=== PATIENT | female | born 1985 | race Caucasian/White ===

== ENCOUNTER 2022-04-29 11:06 | Emergency (ER) | payer OTHER, SELFPAY ==
[2022-04-29] VITALS (23 sets, daily range): BP systolic 103–141; BP diastolic 52–69; PULSE 69–99; RESP 16–23; TEMP 35.9–36.5; O2SAT 100; BMI 21.4
[2022-04-29 11:46] LABS: Basophils Absolute Auto 100 /uL (0-100); Basophils Percent Auto 1.1 % (0-2); Eosinophils Absolute Auto 0 /uL (0-450); Eosinophils Percent Auto 0.6 % (2-4); Hematocrit 23.1 % (36-46); Hemoglobin 7.1 g/dL (12.0-16.0); Lymphocytes Absolute Auto 1500 /uL (1100-4500); Mean Corpuscular HGB Conc 30.6 % (30-36); Mean Corpuscular Hemoglobin 19.8 PG (26-34); Mean Corpuscular Volume 64.8 fL (80-100); Monocytes Absolute Auto 500 /uL (0-900); Monocytes Percent Auto 7.1 % (3-14); Neutrophils Absolute Auto 4800 /uL (1500-7000); Neutrophils Percent Auto 69.2 % (50-75); Platelet Count 345 X10^3/uL (150-400); Red Blood Cell Count 3.56 X10^6/uL (4.0-5.2); Red Cell Distribution Width 17.5 % (11.6-14.8); White Blood Cell Count 6.9 X10^3/uL (4.5-11.0)
--- NOTE | 2022-04-29 11:48 | ED.GENADULT ---
HPI - General Adult General Chief complaint: Weakness Stated complaint: anemia, heavy period, weakness Time Seen by Provider: 04/29/22 11:42 Source: patient Mode of arrival: Ambulatory History of Present Illness HPI narrative: Patient is a 36-year-old female. Has had a gastric bypass in the past which has caused her to have issues with absorption of iron. She has had iron infusions in the past. She also has had very heavy menstrual cycles. She is not on any control. She states that a couple days ago she started to have her normal menstrual cycle bleeding. She went to see her primary doctor the end of last week because of the fatigue that she was having. Denies any fevers. No abdominal pain. No vomiting. She was told by her primary doctor that she should come to the emergency department for evaluation. According to reports her hemoglobin and hematocrit on Friday were 7.6/27.1. Review of Systems Review of Systems ROS Unobtainable: All systems reviewed & are unremarkable except as noted in HPI and below Constitutional Constitutional: Reports fatigue, Denies fever(s) and Reports lethargy Cardiovascular Cardiovascular: Denies chest pain and Reports dyspnea on exertion Respiratory Respiratory: Reports dyspnea on exertion Gastrointestinal Gastrointestinal: Denies abdominal pain, Denies change in bowel habits, Denies nausea and Denies vomiting Genitourinary Genitourinary: Reports as per HPI, Denies hematuria and Denies dysuria Integumentary/Breasts Comments: Easy bruising Neurologic Neurologic: Reports system reviewed and no additional complaints, except as documented Endocrine Endocrine: Reports fatigue Hematologic/Lymphatic On Anticoagulants: No Patient History Medical History Iron deficiency anemia Surgical History History of gastric bypass Social History Smoking Status: Never smoker Smoking Status: Never smoker Substance Use Type: does not use Exam Initial Vital Signs Initial Vital Signs: Vital Signs Temperature 96.6 F L 04/29/22 11:10 Pulse Rate 70 04/29/22 11:10 Respiratory Rate 18 04/29/22 11:10 Blood Pressure 141/66 H 04/29/22 11:10 Pulse Oximetry 100 04/29/22 11:10 Oxygen Delivery Method 04/29/22 11:10 Const General: cooperative and comfortable HENMT Head: normal to inspection and normocephalic Resp Effort & Inspection: normal respiratory effort Auscultation: clear to auscultation bilaterally Cardio Rate: regular rate Rhythm: regular rhythm GI Inspection: normal to inspection Palpation: soft and No tender Skin General: no rashes or lesions noted Neuro General: patient alert, patient awake, patient oriented x3 and moves all extremities Cognition: normal cognition Speech: speech normal Extrem General: normal to inspection and capillary refill normal Psych Appearance: grossly normal and well kempt Course Orders Ordered: ED Orders 04/29/22 11:16 EKG-12 Lead Stat 04/29/22 11:33 Complete Blood Count AUTO DIFF Stat Comprehensive Metabolic Panel Stat Packed Cells Stat Partial Thromboplastin Time Stat Prothrombin Time INR Stat Type and Screen Stat 04/29/22 16:49 Hemoglobin and Hematocrit Stat Vital Signs Vital signs: Vital Signs - 8 hr 04/29/22 11:10 04/29/22 11:19 04/29/22 11:19 Temperature 96.6 F L Pulse Rate 70 71 Respiratory Rate 18 Blood Pressure 141/66 H 141/66 H Pulse Oximetry 100 100 Oxygen Delivery Method Room Air 04/29/22 11:30 04/29/22 12:00 04/29/22 12:30 Temperature Pulse Rate 83 81 75 Respiratory Rate 20 23 Blood Pressure Pulse Oximetry 100 100 100 Oxygen Delivery Method 04/29/22 12:31 04/29/22 12:31 04/29/22 13:00 Temperature Pulse Rate 71 70 Respiratory Rate 19 17 Blood Pressure 107/56 L Pulse Oximetry 100 100 Oxygen Delivery Method 04/29/22 13:08 04/29/22 13:24 04/29/22 13:08 Temperature 97.7 F 97.5 F L Pulse Rate 77 75 76 Respiratory Rate 20 18 17 Blood Pressure 108/56 L 112/62 Pulse Oximetry 100 Oxygen Delivery Method 04/29/22 13:08 04/29/22 13:15 04/29/22 13:15 Temperature 97.7 F Pulse Rate 78 Respiratory Rate 20 Blood Pressure 108/56 L 110/57 L Pulse Oximetry 100 Oxygen Delivery Method 04/29/22 13:24 04/29/22 13:24 04/29/22 13:30 Temperature Pulse Rate 72 Respiratory Rate 19 Blood Pressure 112/62 111/60 Pulse Oximetry 100 Oxygen Delivery Method 04/29/22 13:30 04/29/22 14:00 04/29/22 14:00 Temperature Pulse Rate 73 72 Respiratory Rate 16 19 Blood Pressure 105/56 L Pulse Oximetry 100 100 Oxygen Delivery Method 04/29/22 14:40 04/29/22 14:53 04/29/22 14:30 Temperature 97.1 F L Pulse Rate 79 99 H Respiratory Rate 16 16 Blood Pressure 109/65 109/65 112/69 Pulse Oximetry Oxygen Delivery Method 04/29/22 14:30 04/29/22 14:40 04/29/22 14:40 Temperature Pulse Rate 88 78 Respiratory Rate 21 18 Blood Pressure 109/65 Pulse Oximetry 100 100 Oxygen Delivery Method 04/29/22 15:00 04/29/22 15:00 04/29/22 15:15 Temperature 97.3 F L Pulse Rate 89 88 Respiratory Rate 20 16 Blood Pressure 105/52 L 105/58 L Pulse Oximetry 100 Oxygen Delivery Method 04/29/22 15:24 04/29/22 15:24 04/29/22 15:30 Temperature Pulse Rate 74 Respiratory Rate 17 Blood Pressure 105/58 L 103/60 Pulse Oximetry 100 Oxygen Delivery Method 04/29/22 15:30 04/29/22 16:00 04/29/22 16:00 Temperature 97.2 F L Pulse Rate 74 72 Respiratory Rate 17 16 Blood Pressure 117/58 L Pulse Oximetry 100 100 Oxygen Delivery Method 04/29/22 16:39 04/29/22 16:30 04/29/22 16:30 Temperature 97.1 F L Pulse Rate 72 69 Respiratory Rate 18 18 Blood Pressure 107/64 107/64 Pulse Oximetry 100 Oxygen Delivery Method 04/29/22 17:00 04/29/22 17:00 Temperature Pulse Rate 79 Respiratory Rate 18 Blood Pressure 106/65 Pulse Oximetry 100 Oxygen Delivery Method Medical Decision Making Lab Data Lab results reviewed: Yes I reviewed the patient's lab results. Result diagrams: 04/29/22 16:49 04/29/22 11:33 Labs: Lab Results 04/29/22 04/29/22 04/29/22 Range/Units 11:33 11:33 11:33 WBC 6.9 (4.5-11.0) X10^3/uL RBC 3.56 L (4.0-5.2) X10^6/uL Hgb 7.1 L (12.0-16.0) g/dL Hct 23.1 L (36-46) % MCV 64.8 L (80-100) fL MCH 19.8 L (26-34) PG MCHC 30.6 (30-36) % RDW 17.5 H (11.6-14.8) % Plt Count 345 (150-400) X10^3/uL Neut % (Auto) 69.2 (50-75) % Lymph % (Auto) 22.0 L (25-40) % [place] % (Auto) 7.1 (3-14) % Eos % (Auto) 0.6 L (2-4) % Baso % (Auto) 1.1 (0-2) % Neut # (Auto) 4800 (4517-3018) /uL Lymph # (Auto) 1500 (6765-0780) /uL [place] # (Auto) 500 (0-900) /uL Eos # (Auto) 0 (0-450) /uL Baso # (Auto) 100 (0-100) /uL RBC Morphology See below Hypochromasia 2+ H Anisocytosis 1+ H Microcytosis 2+ H PT 11.6 (10.1-12.7) SECONDS INR 1.0 (0.9-1.3) APTT 32 (26-36) SECONDS Sodium 140 (137-145) mmol/L Potassium 3.7 (3.4-5.1) mmol/L Chloride 108 H (98-107) mmol/L Carbon Dioxide 22 (22-32) mmol/L BUN 11 (7-17) mg/dL Creatinine 0.62 (0.52-1.04) mg/dL Estimated GFR > 60 (>60) mL/min BUN/Creatinine Ratio 17.7 (6-22) Glucose 90 (70-100) mg/dL Calcium 8.6 (8.4-10.2) mg/dL Total Bilirubin 0.6 (0.2-1.3) mg/dL AST 24 (14-36) IU/L ALT 14 (<35) IU/L Alkaline Phosphatase 73 (38-126) U/L Total Protein 7.6 (6.3-8.2) g/dL Albumin 4.2 (3.5-5.0) g/dL Globulin 3.4 (1.7-4.1) g/dL Albumin/Globulin Ratio 1.2 (1.0-2.8) Blood Type Antibody Screen Crossmatch 04/29/22 04/29/22 Range/Units 11:33 16:49 WBC (4.5-11.0) X10^3/uL RBC (4.0-5.2) X10^6/uL Hgb 8.8 L (12.0-16.0) g/dL Hct 28.2 L (36-46) % MCV (80-100) fL MCH (26-34) PG MCHC (30-36) % RDW (11.6-14.8) % Plt Count (150-400) X10^3/uL Neut % (Auto) (50-75) % Lymph % (Auto) (25-40) % [place] % (Auto) (3-14) % Eos % (Auto) (2-4) % Baso % (Auto) (0-2) % Neut # (Auto) (6615-9880) /uL Lymph # (Auto) (2906-9696) /uL [place] # (Auto) (0-900) /uL Eos # (Auto) (0-450) /uL Baso # (Auto) (0-100) /uL RBC Morphology Hypochromasia Anisocytosis Microcytosis PT (10.1-12.7) SECONDS INR (0.9-1.3) APTT (26-36) SECONDS Sodium (137-145) mmol/L Potassium (3.4-5.1) mmol/L Chloride (98-107) mmol/L Carbon Dioxide (22-32) mmol/L BUN (7-17) mg/dL Creatinine (0.52-1.04) mg/dL Estimated GFR (>60) mL/min BUN/Creatinine Ratio (6-22) Glucose (70-100) mg/dL Calcium (8.4-10.2) mg/dL Total Bilirubin (0.2-1.3) mg/dL AST (14-36) IU/L ALT (<35) IU/L Alkaline Phosphatase (38-126) U/L Total Protein (6.3-8.2) g/dL Albumin (3.5-5.0) g/dL Globulin (1.7-4.1) g/dL Albumin/Globulin Ratio (1.0-2.8) Blood Type A Positive Antibody Screen Negative Crossmatch See Detail MDM Narrative Medical decision making narrative: Patient was anemic upon arrival but not tachycardic and not hypotensive. She states she does feel very fatigued does get short of breath on exertion. Informed her that those symptoms could potentially be from her blood counts. We did discuss blood transfusion. Discussed risks and benefits of this. We discussed alternatives to include not having a blood transfusion and following up with her primary doctor for an iron infusion. After this discussion the patient stated that she would like to try the blood transfusion to see if this improves things. She was given 2 units of packed red blood cells. She tolerated this without issue. We will hold on an iron transfusion as this is not needed in the ER. Informed her that she should talk with her primary doctor about this and also about potentially starting on control for hormone regulations as this may decrease the amount of vaginal bleeding that she is having. She was given return precautions and follow-up instructions. She expressed understanding and agreement. Discharge Plan Departure Patient Disposition: Home Clinical Impression: Anemia Instructions: DI for Blood Transfusion Activity Restrictions/Additional Instructions: I do recommend that you call your primary doctor to discuss follow-up and to discuss an iron infusion and potentially the use of control. Return to the emergency department for any new or worsening symptoms. Referrals: Whitney Nina MD [Primary Care Provider] - Visit Report Forms: Patient Portal/API
[2022-04-29 11:49] LABS: Add Manual Diff / Slide Review SLIDE REVIEW
[2022-04-29 11:55] LABS: Prothrombin Time 11.6 SECONDS (10.1-12.7)
[2022-04-29 11:58] LABS: PTT Partial Thromboplastin Tim 32 SECONDS (26-36)
[2022-04-29 12:01] LABS: Alanine Aminotransferase 14 IU/L (<35); Albumin 4.2 g/dL (3.5-5.0); Albumin Globulin Ratio 1.2 (1.0-2.8); Alkaline Phosphatase 73 U/L (38-126); Aspartate Aminotransferase 24 IU/L (14-36); BUN Creatinine Ratio 17.7 (6-22); Bilirubin Total 0.6 mg/dL (0.2-1.3); Blood Urea Nitrogen 11 mg/dL (7-17); Calcium 8.6 mg/dL (8.4-10.2); Carbon Dioxide 22 mmol/L (22-32); Chloride 108 mmol/L (98-107); Estimated Glomerular Filt Rate > 60 mL/min (>60); Globulin 3.4 g/dL (1.7-4.1); Glucose 90 mg/dL (70-100); HEMOLYSIS < 15 (0-50); Potassium 3.7 mmol/L (3.4-5.1); Sodium 140 mmol/L (137-145); Total Protein 7.6 g/dL (6.3-8.2)
[2022-04-29 12:04] LABS: Anisocytosis 1+; Hypochromasia 2+; Microcytosis 2+
[2022-04-29 17:05] LABS: Hematocrit 28.2 % (36-46); Hemoglobin 8.8 g/dL (12.0-16.0)
== END 2022-04-29 17:20 | disposition home or self-care (01) ==
PROVIDERS: Emergency Provider Emergency Medicine; PCP Family Medicine
DX: D64.9 Anemia, unspecified (principal); R53.83 Other fatigue; R06.02 Shortness of breath; Z98.84 Bariatric surgery status
CPT/HCPCS: 36415; 36430; 80053; 85014; 85018; 85025; 85610; 85730; 86850; 86900; 86901; 99284; P9016

== ENCOUNTER 2022-06-20 09:32 | Emergency (ER) | payer OTHER, SELFPAY ==
[2022-06-20 09:41] VITALS: BP 127/70; PULSE 81; RESP 15; TEMP 36.5; O2SAT 100; BMI 24.5
[2022-06-20 10:17] LABS: UR Morphine/Opiate cutoff 300 Negative (Negative); Ur Creatinine Normal (Normal); Ur Specific Gravity Normal (Normal); Urine Amphetamines Negative (Negative); Urine Barbiturates Negative (Negative); Urine Benzodiazepines Negative (Negative); Urine Cocaine Negative (Negative); Urine MDMA Negative (Negative); Urine Methadone Negative (Negative); Urine Methamphetamines Negative (Negative); Urine Oxycodone Negative (Negative); Urine Phencyclidine Negative (Negative); Urine Tetrahydrocannabinol Negative (Negative); Urine Tricyclic Antidepressant Negative (Negative); Urine pH Normal (Normal)
[2022-06-20 10:18] LABS: COVID19 -Nasal RAPID Negative (Negative)
[2022-06-20 10:33] LABS: Basophils Absolute Auto 100 /uL (0-100); Basophils Percent Auto 0.9 % (0-2); Eosinophils Absolute Auto 0 /uL (0-450); Eosinophils Percent Auto 0.3 % (2-4); Hematocrit 32.4 % (36-46); Hemoglobin 10.4 g/dL (12.0-16.0); Lymphocytes Absolute Auto 1300 /uL (1100-4500); Lymphocytes Percent Auto 19.5 % (25-40); Mean Corpuscular HGB Conc 32.1 % (30-36); Mean Corpuscular Hemoglobin 24.5 PG (26-34); Mean Corpuscular Volume 76.3 fL (80-100); Monocytes Absolute Auto 300 /uL (0-900); Monocytes Percent Auto 4.8 % (3-14); Neutrophils Absolute Auto 5000 /uL (1500-7000); Neutrophils Percent Auto 74.5 % (50-75); Platelet Count 318 X10^3/uL (150-400); Red Blood Cell Count 4.24 X10^6/uL (4.0-5.2); Red Cell Distribution Width 23.9 % (11.6-14.8); White Blood Cell Count 6.7 X10^3/uL (4.5-11.0)
[2022-06-20 10:34] LABS: Add Manual Diff / Slide Review SLIDE REVIEW
[2022-06-20 10:41] LABS: Acetaminophen < 10 ug/mL (10-30); Alanine Aminotransferase 18 IU/L (<35); Albumin 4.4 g/dL (3.5-5.0); Albumin Globulin Ratio 1.2 (1.0-2.8); Alkaline Phosphatase 85 U/L (38-126); Aspartate Aminotransferase 26 IU/L (14-36); BUN Creatinine Ratio 18.3 (6-22); Bilirubin Total 0.5 mg/dL (0.2-1.3); Blood Urea Nitrogen 11 mg/dL (7-17); Calcium 9.1 mg/dL (8.4-10.2); Carbon Dioxide 25 mmol/L (22-32); Chloride 106 mmol/L (98-107); Estimated Glomerular Filt Rate > 60 mL/min (>60); Ethanol (ETOH) < 10 mg/dL; Globulin 3.6 g/dL (1.7-4.1); Glucose 101 mg/dL (70-100); HEMOLYSIS < 15 (0-50); Potassium 4.4 mmol/L (3.4-5.1); Salicylate < 1.0 mg/dL (<20); Sodium 139 mmol/L (137-145)
[2022-06-20 11:06] LABS: Free T4, Direct Thyroxine 0.94 ng/dL (0.78-2.19)
[2022-06-20 11:14] LABS: Anisocytosis 2+
--- NOTE | 2022-06-20 12:45 | CM.SWNOTE ---
Pt is 36 year old female with no significant medical history that presents to ED with suicidal ideation with a plan. Pt has [employer] insurance and her PCP is Dr. Whitney Nina. Plan: pt will discharge home with safety plan. Pt will follow up with PCP regarding possibility of starting psych meds. Gloria Lee TRACK MECHANIC TRACK MECHANIC - Block Mechanic Assessment TRACK MECHANIC - Block Mechanic Assessment Start: 06/20/22 12:21 Freq: Status: Active Protocol: Document 06/20/22 12:21 TM (Rec: 06/20/22 12:35 TM [id number]) TRACK MECHANIC/Block Mechanic Assessment Time Spent with Patient Start date 06/20/22 Visit Start Time 11:45 End date 06/20/22 Visit End Time 12:21 Mental Health Screening Include Onset, Duration, Intensity Presenting Problem Pt presents with suicidal ideation. [place] for [place] hour before driving herself to ED for evaluation. Precipitating Event(s) Pt reports that an argument with her triggered her SI. Pt reports that she has been feeling off for a few days and has had thoughts that the world and her family would be better off without her. Current Behavioral Health Provider(s) Joellen Graham PsyD, MEd - Include Facility, Provider, Ph. # [facility]. Hx Mental Health and Chemical Pt denies formal psychiatric Dependency diagnoses. Pt denies substance use. Family Hx of Behavioral Abuse Pt reports that her mother suffered depression and has a hx of SI and suicide attempts. Psychiatric Hospitalizations (date(s)/ N/A location) Psychosocial information & Support Pt reports that her castings drafter and Systems therapist are good supports. School/Work Pt works as an accounts adjustable clerk. Legal Concerns Legal Matters - Outstanding Issues None. Mental Status Orientation (Person/Place/Time) Pt is oriented to person, place, time. Stated Mood Feeling off for a few days. Feeling like the world and my family would be better off if I didn't exist. Affect (Congruent with Mood?) Normal - congruent with mood. Thought Content - Specify/Describe Intact. No AH or VH noted. Obsessions, Delusions, Hallucinations Thought Processes (Qqfawxf-Eipmslos-Vbtc Logical, organized. Ihalabnj-Xycmnpic-Hrqltwhhhp- Hnngpwdzpwaetm-Lsgjgvy-Nmdbggppxvrd- Thought Blocking) Speech (Vaatdb-Spod-Qnwbqyl-Rapid-Soft- normal. Loud-Pressured) Motor (Ccokld-Cfzhuwypk-Daio-Other) normal. Insight (Fbjh-Ttax-Gxtp/Limited) Fair. Judgement (Klsg-Orot-Wtra/Limited) Fair. Impulse Control (Adequate-Impaired) Not tested. Fair - per situation; pt was able [place] and drive herself to ED. Memory (Bkfxmrndc-Rwdcut-Gxiexd, Intact. Impaired-Intact) Concentration (Intact-Impaired) Intact. Attention (Intact-Impaired) Intact. Behavior (Appropriate-Inappropriate) Appropriate. Risk Assessment Suicidal Ideation (Plan) No Homicidal Ideation (Plan) No Comment Pt denies current SI and has no current plan. Intervention Intervention SW met pt at bedside to perform mental health assessment. Pt reports that she was feeling suicidal earlier but denies current feelings of SI and denies plan . Pt reports that she feels like she needs to make a change to get out of her current cycle. SW provides psychoeducation about hyperarousal and inability to reason in situations such as intense arguments with spouse. SW discussed possibility of pt starting psychiatric medication - such as SSRI. Pt reports that she has never been prescribed medication but may be open to trying. Pt reports that she does not feel like she needs inpatient psychiatric hospitalization at this time. Pt reports that she believes she can keep herself safe at home. ANTHONY completed safety plan with pt to identify triggers, early warning signs, and coping mechanisms. Plan RA Plan Pt will follow up with PCP to discuss possibility of starting SSRI or other psych med.
[2022-06-20 13:37] VITALS: BP 108/58; PULSE 88; O2SAT 100
--- NOTE | 2022-06-20 13:59 | ED_ITS ---
HPI - Psych <FINA Hudson - Last Filed: 06/20/22 14:06> General Chief Complaint: Psychiatric Symptoms Stated Complaint: suicidal ideation Time Seen by Provider: 06/20/22 12:52 Source: patient Mode of arrival: Ambulatory History of Present Illness HPI Narrative: This is a 36-year-old female presents to the emergency department with suicidal ideation and feeling severely depressed mood this morning while she is going through some stressful situations. She denies any attempts at harming herself, states that she has a primary care provider as well as a therapist and is willing to follow-up with them accordingly. She was scared about her feelings and so she came here for an evaluation and resources. She states that she is going through some difficult times at home, denies any homicidal ideation, d enies being in danger, denies any intoxication or substance abuse. She denies any ingestion, states that she did not feel like she wanted to live, she denies having a plan, she denies having any attempts at hurting herself or suicidal thoughts in the past. She states that she has a 1-year-old child and her primary care provider was going to place her on Wellbutrin during her but she found out that her baby had a cleft palate and was too nervous to ever start the medication. She has not ever been on antidepressants in the past. Related Data Home Medications Medication Instructions Recorded Confirmed multivitamin 1 tab PO DAILY 05/16/22 05/16/22 vitamin [id number] B1 1,000 ml IM QMONTH 05/16/22 mcg-100 mg/mL injection solution Previous Rx's Medication Instructions Recorded bupropion HCl 75 mg tablet 75 mg PO TID 30 days #90 tabs 06/20/22 hydroxyzine HCl 25 mg tablet 25 mg PO BID PRN anxiety #60 tabs 06/20/22 Allergies Allergy/AdvReac Type Severity Reaction Status Date / Time No Known Drug Allergies Allergy Verified 06/20/22 09:42 Review of Systems <FINA Hudson - Last Filed: 06/20/22 14:06> Review of Systems Narrative: Review of systems is negative for acute abnormalities unless otherwise noted in HPI Patient History <FINA Hudson - Last Filed: 06/20/22 14:06> Medical History Iron deficiency anemia Surgical History History of gastric bypass Social History Smoking Status: Never smoker Smoking Status: Never smoker alcohol intake frequency: holidays/special occasions only Substance Use Type: does not use Exam <FINA Hudson - Last Filed: 06/20/22 14:06> Narrative Exam Narrative: Reviewed vitals signs and nursing notes. General: cooperative, comfortable, in no acute distress, well groomed, pleasant and calm, interactive HEENT: symmetrical facial expressions, moist mucous membranes Cardiovascular: regular rate and rhythm, no peripheral edema, warm extremities Respiratory: normal effort, able to speak in complete sentences, without wheezing, stridor, MSK: moves all extremities, ambulatory without deficit Skin: brisk capillary refill, without pallor or erythema Neuro: normal speech and cognition, A&O x3, ambulatory, clear speech Psych: mental status is grossly normal, congruent mood, normal affect, pleasant and cooperative Initial Vital Signs Initial Vital Signs: Vital Signs Temperature 97.7 F 06/20/22 09:41 Pulse Rate 81 06/20/22 09:41 Respiratory Rate 15 06/20/22 09:41 Blood Pressure 127/70 06/20/22 09:41 Pulse Oximetry 100 06/20/22 09:41 Oxygen Delivery Method 06/20/22 09:41 <Evelina Nino DO - Last Filed: 06/24/22 08:03> Initial Vital Signs Initial Vital Signs: Vital Signs Temperature 97.7 F 06/20/22 09:41 Pulse Rate 81 06/20/22 09:41 Respiratory Rate 15 06/20/22 09:41 Blood Pressure 127/70 06/20/22 09:41 Pulse Oximetry 100 06/20/22 09:41 Oxygen Delivery Method 06/20/22 09:41 Course <FINA Hudson - Last Filed: 06/20/22 14:06> Orders Ordered: ED Orders 06/20/22 09:48 Consult to ULTRASONIC SEAMING MACHINE OPERATOR - Clamshell Engineer Stat 06/20/22 09:50 COVID19 -Nasal RAPID/Pre-Proc Stat 06/20/22 10:00 Urine Drug Screen, Rapid Stat 06/20/22 10:13 Acetaminophen Stat Complete Blood Count AUTO DIFF Stat Comprehensive Metabolic Panel Stat Ethanol (ETOH) Stat Free T4, Direct Thyroxine Stat Salicylate Stat Thyroid Stimulating Hormone Stat 06/20/22 11:17 Test Urine Stat Urinalysis and Microscopic Stat Reevaluation(s) Reevaluation #1: sail lay out worker met with the patient and agrees that she is not gravely disabled, she has adequate support and a safety plan, she has a primary care provider who she will follow-up with and a therapist as well. Patient is interested in medication for depression, I when spoke with her about this, opted to start Wellbutrin again at 75 mg t.i.d. per her previous prescription and then she will follow-up with her provider about this. Discussed as needed anxiety medication and gave her hydroxyzine in the emergency department and a prescription of this for symptom management through her therapy and difficult time. Vital Signs Vital signs: Vital Signs - 8 hr 06/20/22 09:41 06/20/22 13:37 Temperature 97.7 F Pulse Rate 81 88 Respiratory Rate 15 Blood Pressure 127/70 108/58 L Pulse Oximetry 100 100 Oxygen Delivery Method Room Air Room Air <Evelina Nino DO - Last Filed: 06/24/22 08:03> Orders Ordered: ED Orders 06/20/22 09:48 Consult to ULTRASONIC SEAMING MACHINE OPERATOR - Clamshell Engineer Stat 06/20/22 09:50 COVID19 -Nasal RAPID/Pre-Proc Stat 06/20/22 10:00 Urine Drug Screen, Rapid Stat 06/20/22 10:13 Acetaminophen Stat Complete Blood Count AUTO DIFF Stat Comprehensive Metabolic Panel Stat Ethanol (ETOH) Stat Free T4, Direct Thyroxine Stat Salicylate Stat Thyroid Stimulating Hormone Stat 06/20/22 11:17 Test Urine Stat Urinalysis and Microscopic Stat Vital Signs Vital signs: Vital Signs - 8 hr 06/20/22 09:41 06/20/22 13:37 Temperature 97.7 F Pulse Rate 81 88 Respiratory Rate 15 Blood Pressure 127/70 108/58 L Pulse Oximetry 100 100 Oxygen Delivery Method Room Air Room Air MDM - Psych <FINA Hudson - Last Filed: 06/20/22 14:06> Lab Data Result diagrams: 06/20/22 10:13 06/20/22 10:13 Labs: Lab Results 06/20/22 06/20/22 06/20/22 Range/Units 09:50 10:00 10:00 WBC (4.5-11.0) X10^3/uL RBC (4.0-5.2) X10^6/uL Hgb (12.0-16.0) g/dL Hct (36-46) % MCV (80-100) fL MCH (26-34) PG MCHC (30-36) % RDW (11.6-14.8) % Plt Count (150-400) X10^3/uL Neut % (Auto) (50-75) % Lymph % (Auto) (25-40) % [place] % (Auto) (3-14) % Eos % (Auto) (2-4) % Baso % (Auto) (0-2) % Neut # (Auto) (3030-8357) /uL Lymph # (Auto) (3482-2048) /uL [place] # (Auto) (0-900) /uL Eos # (Auto) (0-450) /uL Baso # (Auto) (0-100) /uL RBC Morphology Anisocytosis Sodium (137-145) mmol/L Potassium (3.4-5.1) mmol/L Chloride (98-107) mmol/L Carbon Dioxide (22-32) mmol/L BUN (7-17) mg/dL Creatinine (0.52-1.04) mg/dL Estimated GFR (>60) mL/min BUN/Creatinine Ratio (6-22) Glucose (70-100) mg/dL Calcium (8.4-10.2) mg/dL Total Bilirubin (0.2-1.3) mg/dL AST (14-36) IU/L ALT (<35) IU/L Alkaline Phosphatase (38-126) U/L Total Protein (6.3-8.2) g/dL Albumin (3.5-5.0) g/dL Globulin (1.7-4.1) g/dL Albumin/Globulin Ratio (1.0-2.8) TSH (0.47-4.68) uIU/mL Free T4 (0.78-2.19) ng/dL Urine Color Yellow Urine Appearance Clear Urine pH 7.0 (4.5-8.0) Ur Specific [place] 1.010 (1.000-1.035) Urine Protein Negative (Negative) Urine Glucose (UA) Negative (Negative) g/dL Urine Ketones Negative (NEGATIVE) Urine Occult Blood Trace-lysed (Negative) Urine Nitrate Negative (Negative) Urine Bilirubin Negative (NEGATIVE) Urine Urobilinogen 0.2 (0.2) E.U./dL Ur Leukocyte Esterase Negative (NEGATIVE) Urine RBC 0-1/hpf (0-5/HPF) Urine WBC None seen (0-5/HPF) Ur Squamous Epith Cells 10-30 /hpf H (0-5/HPF) Urine Bacteria Occasional (0-1) (None) Ur Culture Indicated? Cult not indicated Urine Test (Negative) Salicylates (<20) mg/dL U Opiates 300ng/mL cut Negative (Negative) Ur Oxycodone Screen Negative (Negative) Urine Methadone Screen Negative (Negative) Acetaminophen (10-30) ug/mL Ur Barbiturates Screen Negative (Negative) U Tricyclic Antidepress Negative (Negative) Ur Phencyclidine Scrn Negative (Negative) Ur Amphetamines Screen Negative (Negative) U Methamphetamines Scrn Negative (Negative) Ur MDMA Scrn (Ecstasy) Negative (Negative) U Benzodiazepines Scrn Negative (Negative) Urine Cocaine Screen Negative (Negative) U Marijuana (THC) Screen Negative (Negative) Ethyl Alcohol ( - 10) mg/dL SARS-CoV-2 (PCR) Negative (Negative) 06/20/22 06/20/22 06/20/22 Range/Units 10:00 10:13 10:13 WBC 6.7 (4.5-11.0) X10^3/uL RBC 4.24 (4.0-5.2) X10^6/uL Hgb 10.4 L (12.0-16.0) g/dL Hct 32.4 L (36-46) % MCV 76.3 L (80-100) fL MCH 24.5 L (26-34) PG MCHC 32.1 (30-36) % RDW 23.9 H (11.6-14.8) % Plt Count 318 (150-400) X10^3/uL Neut % (Auto) 74.5 (50-75) % Lymph % (Auto) 19.5 L (25-40) % [place] % (Auto) 4.8 (3-14) % Eos % (Auto) 0.3 L (2-4) % Baso % (Auto) 0.9 (0-2) % Neut # (Auto) 5000 (5734-7179) /uL Lymph # (Auto) 1300 (5101-5886) /uL [place] # (Auto) 300 (0-900) /uL Eos # (Auto) 0 (0-450) /uL Baso # (Auto) 100 (0-100) /uL RBC Morphology See below Anisocytosis 2+ H Sodium 139 (137-145) mmol/L Potassium 4.4 (3.4-5.1) mmol/L Chloride 106 (98-107) mmol/L Carbon Dioxide 25 (22-32) mmol/L BUN 11 (7-17) mg/dL Creatinine 0.60 (0.52-1.04) mg/dL Estimated GFR > 60 (>60) mL/min BUN/Creatinine Ratio 18.3 (6-22) Glucose 101 H (70-100) mg/dL Calcium 9.1 (8.4-10.2) mg/dL Total Bilirubin 0.5 (0.2-1.3) mg/dL AST 26 (14-36) IU/L ALT 18 (<35) IU/L Alkaline Phosphatase 85 (38-126) U/L Total Protein 8.0 (6.3-8.2) g/dL Albumin 4.4 (3.5-5.0) g/dL Globulin 3.6 (1.7-4.1) g/dL Albumin/Globulin Ratio 1.2 (1.0-2.8) TSH (0.47-4.68) uIU/mL Free T4 (0.78-2.19) ng/dL Urine Color Urine Appearance Urine pH (4.5-8.0) Ur Specific [place] (1.000-1.035) Urine Protein (Negative) Urine Glucose (UA) (Negative) g/dL Urine Ketones (NEGATIVE) Urine Occult Blood (Negative) Urine Nitrate (Negative) Urine Bilirubin (NEGATIVE) Urine Urobilinogen (0.2) E.U./dL Ur Leukocyte Esterase (NEGATIVE) Urine RBC (0-5/HPF) Urine WBC (0-5/HPF) Ur Squamous Epith Cells (0-5/HPF) Urine Bacteria (None) Ur Culture Indicated? Urine Test Negative (Negative) Salicylates < 1.0 (<20) mg/dL U Opiates 300ng/mL cut (Negative) Ur Oxycodone Screen (Negative) Urine Methadone Screen (Negative) Acetaminophen < 10 (10-30) ug/mL Ur Barbiturates Screen (Negative) U Tricyclic Antidepress (Negative) Ur Phencyclidine Scrn (Negative) Ur Amphetamines Screen (Negative) U Methamphetamines Scrn (Negative) Ur MDMA Scrn (Ecstasy) (Negative) U Benzodiazepines Scrn (Negative) Urine Cocaine Screen (Negative) U Marijuana (THC) Screen (Negative) Ethyl Alcohol < 10 ( - 10) mg/dL SARS-CoV-2 (PCR) (Negative) 06/20/22 Range/Units 10:13 WBC (4.5-11.0) X10^3/uL RBC (4.0-5.2) X10^6/uL Hgb (12.0-16.0) g/dL Hct (36-46) % MCV (80-100) fL MCH (26-34) PG MCHC (30-36) % RDW (11.6-14.8) % Plt Count (150-400) X10^3/uL Neut % (Auto) (50-75) % Lymph % (Auto) (25-40) % [place] % (Auto) (3-14) % Eos % (Auto) (2-4) % Baso % (Auto) (0-2) % Neut # (Auto) (1737-2969) /uL Lymph # (Auto) (1328-0494) /uL [place] # (Auto) (0-900) /uL Eos # (Auto) (0-450) /uL Baso # (Auto) (0-100) /uL RBC Morphology Anisocytosis Sodium (137-145) mmol/L Potassium (3.4-5.1) mmol/L Chloride (98-107) mmol/L Carbon Dioxide (22-32) mmol/L BUN (7-17) mg/dL Creatinine (0.52-1.04) mg/dL Estimated GFR (>60) mL/min BUN/Creatinine Ratio (6-22) Glucose (70-100) mg/dL Calcium (8.4-10.2) mg/dL Total Bilirubin (0.2-1.3) mg/dL AST (14-36) IU/L ALT (<35) IU/L Alkaline Phosphatase (38-126) U/L Total Protein (6.3-8.2) g/dL Albumin (3.5-5.0) g/dL Globulin (1.7-4.1) g/dL Albumin/Globulin Ratio (1.0-2.8) TSH 0.690 (0.47-4.68) uIU/mL Free T4 0.94 (0.78-2.19) ng/dL Urine Color Urine Appearance Urine pH (4.5-8.0) Ur Specific [place] (1.000-1.035) Urine Protein (Negative) Urine Glucose (UA) (Negative) g/dL Urine Ketones (NEGATIVE) Urine Occult Blood (Negative) Urine Nitrate (Negative) Urine Bilirubin (NEGATIVE) Urine Urobilinogen (0.2) E.U./dL Ur Leukocyte Esterase (NEGATIVE) Urine RBC (0-5/HPF) Urine WBC (0-5/HPF) Ur Squamous Epith Cells (0-5/HPF) Urine Bacteria (None) Ur Culture Indicated? Urine Test (Negative) Salicylates (<20) mg/dL U Opiates 300ng/mL cut (Negative) Ur Oxycodone Screen (Negative) Urine Methadone Screen (Negative) Acetaminophen (10-30) ug/mL Ur Barbiturates Screen (Negative) U Tricyclic Antidepress (Negative) Ur Phencyclidine Scrn (Negative) Ur Amphetamines Screen (Negative) U Methamphetamines Scrn (Negative) Ur MDMA Scrn (Ecstasy) (Negative) U Benzodiazepines Scrn (Negative) Urine Cocaine Screen (Negative) U Marijuana (THC) Screen (Negative) Ethyl Alcohol ( - 10) mg/dL SARS-CoV-2 (PCR) (Negative) Point of Care Testing Test Results Negative Urine Dip Bedside Urine Glucose Negative Bedside Urine Bilirubin - Negative Bedside Urine Ketone - Negative Urine Specific [place] 1.010 Bedside Urine Occult Blood - Negative Bedside Urine pH 7.0 Bedside Urine Protein - Negative Bedside Urine Urobilinogen - Negative Bedside Urine Nitrite - Negative Bedside Urine Leukocytes - Negative Esterase MDM Narrative Medical decision making narrative: This is a 36-year-old female presents to the emergency department for suicidal ideation without an attempt or a plan in place. She has adequate support through her [employer] and a friend, primary care provider as well as a therapist and was evaluated by social work and determined to not be gravely disabled. Patient expresses interest in starting Wellbutrin at the same prescription that she was prescribed while from her PCP and gave her a as needed prescription of hydroxyzine to use as needed. She will follow-up with her providers accordingly, I encourage hydration, consistency, deep breathing, mindfulness and meditation as she goes through these times. She is already self aware and plans on following up with her safety network. Patient is appropriate and amenable to discharge home. Vital signs are stable on repeat examination is unremarkable. Patient has been informed of results. Patient has been given strict return to ER precautions for any new or worsening symptoms. Patient understands to follow up closely with outpatient providers as instructed. Patient understands plan and agrees to discharge home. All questions and concerns answered at this time. <Evelina Nino, DO - Last Filed: 06/24/22 08:03> Lab Data Labs: Lab Results 06/20/22 06/20/22 06/20/22 Range/Units 09:50 10:00 10:00 WBC (4.5-11.0) X10^3/uL RBC (4.0-5.2) X10^6/uL Hgb (12.0-16.0) g/dL Hct (36-46) % MCV (80-100) fL MCH (26-34) PG MCHC (30-36) % RDW (11.6-14.8) % Plt Count (150-400) X10^3/uL Neut % (Auto) (50-75) % Lymph % (Auto) (25-40) % [place] % (Auto) (3-14) % Eos % (Auto) (2-4) % Baso % (Auto) (0-2) % Neut # (Auto) (8370-8305) /uL Lymph # (Auto) (3464-1066) /uL [place] # (Auto) (0-900) /uL Eos # (Auto) (0-450) /uL Baso # (Auto) (0-100) /uL RBC Morphology Anisocytosis Sodium (137-145) mmol/L Potassium (3.4-5.1) mmol/L Chloride (98-107) mmol/L Carbon Dioxide (22-32) mmol/L BUN (7-17) mg/dL Creatinine (0.52-1.04) mg/dL Estimated GFR (>60) mL/min BUN/Creatinine Ratio (6-22) Glucose (70-100) mg/dL Calcium (8.4-10.2) mg/dL Total Bilirubin (0.2-1.3) mg/dL AST (14-36) IU/L ALT (<35) IU/L Alkaline Phosphatase (38-126) U/L Total Protein (6.3-8.2) g/dL Albumin (3.5-5.0) g/dL Globulin (1.7-4.1) g/dL Albumin/Globulin Ratio (1.0-2.8) TSH (0.47-4.68) uIU/mL Free T4 (0.78-2.19) ng/dL Urine Color Yellow Urine Appearance Clear Urine pH 7.0 (4.5-8.0) Ur Specific [place] 1.010 (1.000-1.035) Urine Protein Negative (Negative) Urine Glucose (UA) Negative (Negative) g/dL Urine Ketones Negative (NEGATIVE) Urine Occult Blood Trace-lysed (Negative) Urine Nitrate Negative (Negative) Urine Bilirubin Negative (NEGATIVE) Urine Urobilinogen 0.2 (0.2) E.U./dL Ur Leukocyte Esterase Negative (NEGATIVE) Urine RBC 0-1/hpf (0-5/HPF) Urine WBC None seen (0-5/HPF) Ur Squamous Epith Cells 10-30 /hpf H (0-5/HPF) Urine Bacteria Occasional (0-1) (None) Ur Culture Indicated? Cult not indicated Urine Test (Negative) Salicylates (<20) mg/dL U Opiates 300ng/mL cut Negative (Negative) Ur Oxycodone Screen Negative (Negative) Urine Methadone Screen Negative (Negative) Acetaminophen (10-30) ug/mL Ur Barbiturates Screen Negative (Negative) U Tricyclic Antidepress Negative (Negative) Ur Phencyclidine Scrn Negative (Negative) Ur Amphetamines Screen Negative (Negative) U Methamphetamines Scrn Negative (Negative) Ur MDMA Scrn (Ecstasy) Negative (Negative) U Benzodiazepines Scrn Negative (Negative) Urine Cocaine Screen Negative (Negative) U Marijuana (THC) Screen Negative (Negative) Ethyl Alcohol ( - 10) mg/dL SARS-CoV-2 (PCR) Negative (Negative) 06/20/22 06/20/22 06/20/22 Range/Units 10:00 10:13 10:13 WBC 6.7 (4.5-11.0) X10^3/uL RBC 4.24 (4.0-5.2) X10^6/uL Hgb 10.4 L (12.0-16.0) g/dL Hct 32.4 L (36-46) % MCV 76.3 L (80-100) fL MCH 24.5 L (26-34) PG MCHC 32.1 (30-36) % RDW 23.9 H (11.6-14.8) % Plt Count 318 (150-400) X10^3/uL Neut % (Auto) 74.5 (50-75) % Lymph % (Auto) 19.5 L (25-40) % [place] % (Auto) 4.8 (3-14) % Eos % (Auto) 0.3 L (2-4) % Baso % (Auto) 0.9 (0-2) % Neut # (Auto) 5000 (1871-6032) /uL Lymph # (Auto) 1300 (3239-0516) /uL [place] # (Auto) 300 (0-900) /uL Eos # (Auto) 0 (0-450) /uL Baso # (Auto) 100 (0-100) /uL RBC Morphology See below Anisocytosis 2+ H Sodium 139 (137-145) mmol/L Potassium 4.4 (3.4-5.1) mmol/L Chloride 106 (98-107) mmol/L Carbon Dioxide 25 (22-32) mmol/L BUN 11 (7-17) mg/dL Creatinine 0.60 (0.52-1.04) mg/dL Estimated GFR > 60 (>60) mL/min BUN/Creatinine Ratio 18.3 (6-22) Glucose 101 H (70-100) mg/dL Calcium 9.1 (8.4-10.2) mg/dL Total Bilirubin 0.5 (0.2-1.3) mg/dL AST 26 (14-36) IU/L ALT 18 (<35) IU/L Alkaline Phosphatase 85 (38-126) U/L Total Protein 8.0 (6.3-8.2) g/dL Albumin 4.4 (3.5-5.0) g/dL Globulin 3.6 (1.7-4.1) g/dL Albumin/Globulin Ratio 1.2 (1.0-2.8) TSH (0.47-4.68) uIU/mL Free T4 (0.78-2.19) ng/dL Urine Color Urine Appearance Urine pH (4.5-8.0) Ur Specific [place] (1.000-1.035) Urine Protein (Negative) Urine Glucose (UA) (Negative) g/dL Urine Ketones (NEGATIVE) Urine Occult Blood (Negative) Urine Nitrate (Negative) Urine Bilirubin (NEGATIVE) Urine Urobilinogen (0.2) E.U./dL Ur Leukocyte Esterase (NEGATIVE) Urine RBC (0-5/HPF) Urine WBC (0-5/HPF) Ur Squamous Epith Cells (0-5/HPF) Urine Bacteria (None) Ur Culture Indicated? Urine Test Negative (Negative) Salicylates < 1.0 (<20) mg/dL U Opiates 300ng/mL cut (Negative) Ur Oxycodone Screen (Negative) Urine Methadone Screen (Negative) Acetaminophen < 10 (10-30) ug/mL Ur Barbiturates Screen (Negative) U Tricyclic Antidepress (Negative) Ur Phencyclidine Scrn (Negative) Ur Amphetamines Screen (Negative) U Methamphetamines Scrn (Negative) Ur MDMA Scrn (Ecstasy) (Negative) U Benzodiazepines Scrn (Negative) Urine Cocaine Screen (Negative) U Marijuana (THC) Screen (Negative) Ethyl Alcohol < 10 ( - 10) mg/dL SARS-CoV-2 (PCR) (Negative) 06/20/22 Range/Units 10:13 WBC (4.5-11.0) X10^3/uL RBC (4.0-5.2) X10^6/uL Hgb (12.0-16.0) g/dL Hct (36-46) % MCV (80-100) fL MCH (26-34) PG MCHC (30-36) % RDW (11.6-14.8) % Plt Count (150-400) X10^3/uL Neut % (Auto) (50-75) % Lymph % (Auto) (25-40) % [place] % (Auto) (3-14) % Eos % (Auto) (2-4) % Baso % (Auto) (0-2) % Neut # (Auto) (8699-7831) /uL Lymph # (Auto) (0503-4278) /uL [place] # (Auto) (0-900) /uL Eos # (Auto) (0-450) /uL Baso # (Auto) (0-100) /uL RBC Morphology Anisocytosis Sodium (137-145) mmol/L Potassium (3.4-5.1) mmol/L Chloride (98-107) mmol/L Carbon Dioxide (22-32) mmol/L BUN (7-17) mg/dL Creatinine (0.52-1.04) mg/dL Estimated GFR (>60) mL/min BUN/Creatinine Ratio (6-22) Glucose (70-100) mg/dL Calcium (8.4-10.2) mg/dL Total Bilirubin (0.2-1.3) mg/dL AST (14-36) IU/L ALT (<35) IU/L Alkaline Phosphatase (38-126) U/L Total Protein (6.3-8.2) g/dL Albumin (3.5-5.0) g/dL Globulin (1.7-4.1) g/dL Albumin/Globulin Ratio (1.0-2.8) TSH 0.690 (0.47-4.68) uIU/mL Free T4 0.94 (0.78-2.19) ng/dL Urine Color Urine Appearance Urine pH (4.5-8.0) Ur Specific [place] (1.000-1.035) Urine Protein (Negative) Urine Glucose (UA) (Negative) g/dL Urine Ketones (NEGATIVE) Urine Occult Blood (Negative) Urine Nitrate (Negative) Urine Bilirubin (NEGATIVE) Urine Urobilinogen (0.2) E.U./dL Ur Leukocyte Esterase (NEGATIVE) Urine RBC (0-5/HPF) Urine WBC (0-5/HPF) Ur Squamous Epith Cells (0-5/HPF) Urine Bacteria (None) Ur Culture Indicated? Urine Test (Negative) Salicylates (<20) mg/dL U Opiates 300ng/mL cut (Negative) Ur Oxycodone Screen (Negative) Urine Methadone Screen (Negative) Acetaminophen (10-30) ug/mL Ur Barbiturates Screen (Negative) U Tricyclic Antidepress (Negative) Ur Phencyclidine Scrn (Negative) Ur Amphetamines Screen (Negative) U Methamphetamines Scrn (Negative) Ur MDMA Scrn (Ecstasy) (Negative) U Benzodiazepines Scrn (Negative) Urine Cocaine Screen (Negative) U Marijuana (THC) Screen (Negative) Ethyl Alcohol ( - 10) mg/dL SARS-CoV-2 (PCR) (Negative) Point of Care Testing Test Results Negative Urine Dip Bedside Urine Glucose Negative Bedside Urine Bilirubin - Negative Bedside Urine Ketone - Negative Urine Specific [place] 1.010 Bedside Urine Occult Blood - Negative Bedside Urine pH 7.0 Bedside Urine Protein - Negative Bedside Urine Urobilinogen - Negative Bedside Urine Nitrite - Negative Bedside Urine Leukocytes - Negative Esterase Discharge Plan Departure Patient Disposition: Home Clinical Impression: Suicidal ideation, Depressed mood Instructions: Depression, DI for Suicidal Ideation-Adult Activity Restrictions/Additional Instructions: *You have been diagnosed with feeling depressed, suicidal ideation and navigating through it. Good job, I applaud your vulnerability and self- awareness in coming in today for help. Please follow-up with the resources that social work was shared with you. Please reach out to your therapist and see the m urgently. Follow-up with your primary doctor and consider a medication adjunct to help you as you navigate difficult times. It can be life changing. I hope that you feel better soon, I wish you well. Please start the Wellbutrin at 75 mg 3 times a day for 30 days and hydroxyzine 1 tab as needed for anxiety attack. A might make you slightly tired but should be safe for the daytime. Please stay hydrated, remember to practice deep breathing, self awareness, mindfulness and meditation. Focus on your needs and your self-care. *What to do: *Please continue to take your regular medications as directed. [x ] New medication prescriptions sent to your pharmacy: [ DOD] [ ] New medication written as a paper prescription [ ] No new medications given *Please follow up with your primary care provider in 2-3 days, call for an appointment. Let them know you were seen in the Emergency Department and that we asked that you be seen for follow-up. We will electronically transmit a record of today's note if your PCP is in our system *If you do not have a primary care provider please contact [phone] to establish care with one of [facility] primary care providers. *Return to Emergency Department if you should have any new, worsening, or vania rning symptoms, such as [fever greater than 101F, chills, worsening pain, persistent vomiting or other bothersome symptoms]. Prescriptions: New bupropion HCl 75 mg tablet 75 mg PO TID 30 Days Qty: 90 0RF Rx Instructions: administer 6 hours apart hydroxyzine HCl 25 mg tablet 25 mg PO BID PRN (Reason: anxiety) Qty: 60 0RF No Action multivitamin Tablet 1 tab PO DAILY vitamin [id number] B1 1,000-100 mg/mL Solution IM QMONTH Referrals: Whitney Nina MD [Primary Care Provider] - Visit Report Forms: Patient Portal/API <Evelina Nino DO - Last Filed: 06/24/22 08:03> Cosign ED Attending Diptiature Attestation: I was immediately available in the department for consultation. Documentation has been reviewed.
[2022-06-20 22:54] LABS: Appearance Urine UA CLEAR; Bilirubin Urine UA NEGATIVE (NEGATIVE); Color Urine UA YELLOW; Glucose Urine UA NEGATIVE (Negative); Ketones Urine UA NEGATIVE (NEGATIVE); Leukocyte Esterase Urine UA NEGATIVE (NEGATIVE); Nitrite Urine UA NEGATIVE (Negative); Occult Blood Urine UA TRACE-LYSED (Negative); Protein Urine UA NEGATIVE (Negative); Urobilinogen Urine UA 0.2 E.U./dL (0.2)
[2022-06-20 22:55] LABS: Pregnancy Test Urine Negative (Negative)
[2022-06-20 23:18] LABS: Bacteria Urine Occasional (0-1); RBC Urine 0-1/HPF (0-5/HPF); Squamous Epithelial Cell Urine 10-30 /HPF (0-5/HPF); WBC Urine None Seen (0-5/HPF)
[2022-06-20 23:19] LABS: Culture Indicated Urine Cult Not Indicated
== END 2022-06-20 13:37 | disposition home or self-care (01) ==
PROVIDERS: Emergency Medicine; Emergency Provider Nurse Practitioner Critical Care Medicine; PCP Family Medicine
DX: R45.851 Suicidal ideations (principal); R45.89 Other symptoms and signs involving emotional state; Z20.822 Contact with and (suspected) exposure to COVID-19
CPT/HCPCS: 36415; 80053; 80305; 80320; 80329; 81001; 81003; 81025; 84439; 84443; 85025; 87635; 99284; C9803; G0480

== ENCOUNTER 2024-02-27 19:01 | Emergency (ER) | payer OTHER, SELFPAY ==
[2024-02-27] VITALS (15 sets, daily range): BP systolic 97–157; BP diastolic 53–80; PULSE 69–91; RESP 15–24; TEMP 36.6–37.3; O2SAT 98–100; BMI 27.7
--- NOTE | 2024-02-27 19:16 | DI.RAD.S_ITS ---
PROCEDURE: XR CHEST 1V INDICATIONS: chest pain TECHNIQUE: One view of the chest was acquired. COMPARISON: None. FINDINGS: Surgical changes and devices: None. Lungs and pleura: Lungs are clear. No pleural effusions or pneumothorax. Mediastinum: Mediastinal contours appear normal. Heart size is normal. Bones and chest wall: No suspicious bony lesions. Overlying soft tissues appear unremarkable. IMPRESSION: No acute cardiopulmonary abnormality is seen. Approved by: Valery Aaron M.D.,Ph.D. on 02/27/2024 at 20:28
--- NOTE | 2024-02-27 19:20 | EKG_ITS ---
[address] [address] [address] [address] Test Date: 2024-02-27 Pat Name: Roshan Starks Department: [facility] Room: Gender: Female Outside Sales Associate: : 1985 Requested By: Order Number: [id number] Reading MD: Lane Preston MD Measurements Intervals [place] Rate: 85 P: 59 VA: 156 QRS: 11 QRSD: 72 T: 48 QT: 356 QTc: 423 Interpretive Statements Normal sinus rhythm Electronically Signed On 02-28-2024 12:03:[address] Preston MD
--- NOTE | 2024-02-27 19:43 | ED_ITS ---
HPI - Arrhythmia/Palpitations General Chief Complaint: Arrhythmia/Palpitations Stated Complaint: heart issues/light headed/beating weird Time Seen by Provider: 02/27/24 19:04 Source: patient Mode of arrival: Ambulatory History of Present Illness HPI narrative: 38-year-old female with previous history of gastric bypass surgery, subsequent iron deficient anemia presents by private vehicle from home for 2 days of intermittent palpitations, lightheadedness. Symptoms intermittent yesterday, more persistent today. States that her father has a history of atrial fibrillation and recommended she come in for evaluation. Patient has had to have transfusions in the past, last was 1 year ago. Patient does not know her baseline hemoglobin.. Denies chest pain, syncope, bleeding. Denies use of blood thinners or NSAIDs. Related Data Home Medications Medication Instructions Recorded Confirmed multivitamin 1 tab PO DAILY 05/16/22 05/16/22 vitamin [id number] B1 1,000 ml IM QMONTH 05/16/22 mcg-100 mg/mL injection solution Previous Rx's Medication Instructions Recorded hydroxyzine HCl 25 mg tablet 25 mg PO BID PRN anxiety #60 tabs 06/20/22 Allergies Allergy/AdvReac Type Severity Reaction Status Date / Time No Known Drug Allergies Allergy Verified 06/20/22 09:42 Patient History Medical History Iron deficiency anemia Surgical History History of gastric bypass Social History Smoking Status: Never smoker Smoking Status: Never smoker alcohol intake frequency: holidays/special occasions only Substance Use Type: does not use Exam Initial Vital Signs Initial Vital Signs: Vital Signs Temperature 98.0 F 02/27/24 19:08 Pulse Rate 79 02/27/24 19:08 Blood Pressure 157/80 H 02/27/24 19:08 Pulse Oximetry 99 02/27/24 19:08 Oxygen Delivery Method Room Air 02/27/24 19:08 Const: Awake, alert, no acute distress, nontoxic appearing Cardiac: regular rate, regular rhythm RESP: unlabored, clear bilaterally, no wheezing GI: Soft, nontender, nondistended, no rebound, no guarding MSK: Atraumatic, full range of motion, pulses equal Skin: Warm, Dry, intact, no rashes Neuro: AO x3, CN II-XII grossly intact, moves all extremities Course Orders Ordered: ED Orders 02/27/24 19:16 XR chest 1V Stat EKG-12 Lead Stat 02/27/24 19:34 Complete Blood Count AUTO DIFF Stat Comprehensive Metabolic Panel Stat Lipase Stat Magnesium Stat NT-proBNP (BNP-Adult 18+) Stat PTT Partial Thromboplastin Woody Stat Prothrombin Time INR Stat TSH [Thyroid Stimulating Hormone] Stat Troponin & CK Cardiac Panel Stat 02/27/24 20:20 Type and Screen Stat transfuse [Packed Cells] Stat Vital Signs Vital signs: Vital Signs - 8 hr 02/27/24 19:08 02/27/24 19:35 02/27/24 19:37 Temperature 98.0 F Pulse Rate 79 83 Respiratory Rate Blood Pressure 157/80 H 113/57 L Pulse Oximetry 99 100 Oxygen Delivery Method Room Air 02/27/24 19:37 Temperature Pulse Rate 84 Respiratory Rate 15 Blood Pressure Pulse Oximetry 100 Oxygen Delivery Method Room Air MDM - Arrhythmia/Palpitations Differential Diagnosis Differential diagnosis: Likely palpitations, anxiety and sinus tachycardia Lab Data 02/27/24 19:34 02/27/24 19:34 Labs: Lab Results 02/27/24 02/27/24 Range/Units 19:34 20:20 WBC 7.6 (4.5-11.0) X10^3/uL RBC 3.49 L (4.0-5.2) X10^6/uL Hgb 6.6 L* (12.0-16.0) g/dL Hct 22.8 L (36-46) % MCV 65.2 L (80-100) fL MCH 19.0 L (26-34) PG MCHC 29.2 L (30-36) % RDW 18.0 H (11.6-14.8) % Plt Count 448 H (150-400) X10^3/uL Neut % (Auto) 61.7 (50-75) % Lymph % (Auto) 27.9 (25-40) % [place] % (Auto) 8.3 (3-14) % Eos % (Auto) 1.0 L (2-4) % Baso % (Auto) 1.1 (0-2) % Neut # (Auto) 4700 (1848-5527) /uL Lymph # (Auto) 2100 (2187-5745) /uL [place] # (Auto) 600 (0-900) /uL Eos # (Auto) 100 (0-450) /uL Baso # (Auto) 100 (0-100) /uL Platelet Estimate Increased on smear RBC Morphology See below Hypochromasia 2+ H Anisocytosis 2+ H Microcytosis 1+ H PT 10.7 (9.4-12.5) SECONDS INR 0.9 (0.9-1.3) APTT 35 (25.1-36.5) SECONDS Sodium 140 (137-145) mmol/L Potassium 4.0 (3.4-5.1) mmol/L Chloride 110 H (98-107) mmol/L Carbon Dioxide 22 (22-32) mmol/L BUN 15 (7-17) mg/dL Creatinine 0.64 (0.52-1.04) mg/dL Estimated GFR > 60 (>60) mL/min BUN/Creatinine Ratio 23.4 H (6-22) Glucose 112 H (70-100) mg/dL Calcium 8.5 (8.4-10.2) mg/dL Magnesium 2.4 H (1.6-2.3) mg/dL Total Bilirubin 0.4 (0.2-1.3) mg/dL AST 27 (14-36) IU/L ALT 17 (<35) IU/L Alkaline Phosphatase 73 (38-126) U/L Total Creatine Kinase 71 (30-135) U/L Troponin I < 0.012 (0.01-0.034) ng/mL NT-Pro-B Natriuret Pep 76 (<125) pg/mL Total Protein 7.5 (6.3-8.2) g/dL Albumin 4.2 (3.5-5.0) g/dL Globulin 3.3 (1.7-4.1) g/dL Albumin/Globulin Ratio 1.3 (1.0-2.8) Lipase 70 (23-300) U/L TSH 1.78 (0.47-4.68) uIU/mL Blood Type A Positive Antibody Screen Negative Crossmatch See Detail MDM Narrative Medical decision making narrative: Well-appearing patient with 1 day of symptoms. Hemodynamically stable, physical exam is overall benign. EKG normal sinus rhythm without concerning findings. Laboratory work shows hemoglobin 6.6, likely etiology of patient's symptoms. This is likely a slowly developing process has patient reports chronic anemia that is difficult to control and has had to have transfusions in the past, most recently 1 year ago. Patient informed of laboratory results, she was in agreement with transfusion at this time. Patient received 1 unit packed red blood cells without incident. Patient counseled to follow up with her primary care doctor and to continue taking her iron supplements as prescribed. Critical Care Time Critical Care Time Critical Care Time: Yes Total Critical Care Time: 31 Attestation: Anemia requiring transfusion Discharge Plan Departure Patient Disposition: Home Clinical Impression: Palpitations, Anemia requiring transfusions Instructions: DI for Iron Deficiency Anemia-Adult Activity Restrictions/Additional Instructions: Your laboratory work today showed a hemoglobin of 6.6 and a hematocrit of 22.8. Your other laboratory work was normal including your electrolytes and thyroid stimulating hormone level. You were given 1 unit of blood today. I recommend continuing to take your iron supplements and following up with your primary care doctor for further treatment of your anemia. It may be beneficial for you to see a gastroenterology doctor with your chronic anemia and history of gastric bypass surgery. Prescriptions: No Action multivitamin Tablet 1 tab PO DAILY vitamin [id number] B1 1,000-100 mg/mL Solution IM QMONTH hydroxyzine HCl 25 mg tablet 25 mg PO BID PRN (Reason: anxiety) Qty: 60 0RF Referrals: Whitney Nina MD [Primary Care Provider] - Stand Alone Forms: Patient Portal/API
[2024-02-27 19:52] LABS: INR 0.9 (0.9-1.3); Prothrombin Time 10.7 SECONDS (9.4-12.5)
[2024-02-27 19:53] LABS: Add Manual Diff / Slide Review NO; Basophils Absolute Auto 100 /uL (0-100); Basophils Percent Auto 1.1 % (0-2); Eosinophils Absolute Auto 100 /uL (0-450); Hematocrit 22.8 % (36-46); Lymphocytes Absolute Auto 2100 /uL (1100-4500); Lymphocytes Percent Auto 27.9 % (25-40); Mean Corpuscular HGB Conc 29.2 % (30-36); Mean Corpuscular Volume 65.2 fL (80-100); Monocytes Absolute Auto 600 /uL (0-900); Monocytes Percent Auto 8.3 % (3-14); Neutrophils Absolute Auto 4700 /uL (1500-7000); Neutrophils Percent Auto 61.7 % (50-75); Platelet Count 448 X10^3/uL (150-400); Red Blood Cell Count 3.49 X10^6/uL (4.0-5.2); White Blood Cell Count 7.6 X10^3/uL (4.5-11.0)
[2024-02-27 19:55] LABS: PTT Partial Thromboplastin Tim 35 SECONDS (25.1-36.5)
[2024-02-27 19:59] LABS: Alanine Aminotransferase 17 IU/L (<35); Albumin 4.2 g/dL (3.5-5.0); Albumin Globulin Ratio 1.3 (1.0-2.8); Alkaline Phosphatase 73 U/L (38-126); Aspartate Aminotransferase 27 IU/L (14-36); BUN Creatinine Ratio 23.4 (6-22); Bilirubin Total 0.4 mg/dL (0.2-1.3); Blood Urea Nitrogen 15 mg/dL (7-17); Calcium 8.5 mg/dL (8.4-10.2); Carbon Dioxide 22 mmol/L (22-32); Chloride 110 mmol/L (98-107); Creatine Kinase 71 U/L (30-135); Estimated Glomerular Filt Rate > 60 mL/min (>60); Globulin 3.3 g/dL (1.7-4.1); Glucose 112 mg/dL (70-100); HEMOLYSIS < 15 (0-50); Hemoglobin 6.6 g/dL (12.0-16.0); Lipase 70 U/L (23-300); Magnesium 2.4 mg/dL (1.6-2.3); Sodium 140 mmol/L (137-145); Total Protein 7.5 g/dL (6.3-8.2)
[2024-02-27 20:10] LABS: NT-proBNP (BNP-Adult 18+) 76 pg/mL (<125); Troponin I < 0.012 ng/mL (0.01-0.034)
[2024-02-27 20:43] LABS: Anisocytosis 2+; Hypochromasia 2+; Microcytosis 1+; Platelet Estimate Increased on smear
[2024-02-27 21:27] LABS: Thyroid Stimulating Hormone 1.78 uIU/mL (0.47-4.68)
== END 2024-02-27 23:26 | disposition home or self-care (01) ==
PROVIDERS: Emergency Provider Emergency Medicine; PCP Family Medicine
DX: R00.2 Palpitations (principal); D64.9 Anemia, unspecified; R07.9 Chest pain, unspecified
CPT/HCPCS: 36415; 36430; 71045; 80053; 82550; 83690; 83735; 83880; 84443; 84484; 85025; 85610; 85730; 86850; 86900; 86901; 93005; 99284; P9016